=== PATIENT | female | born 1955 | race Caucasian/White ===

== ENCOUNTER → 2023-08-24 09:25 | Outpatient (REF) | payer MEDICARE, BC, SELFPAY ==
[2023-08-24 09:56] LABS: Ionized Calcium 1.25 mMOL/L (1.15-1.33)
[2023-08-24 10:36] LABS: ALT (SGPT) 51 U/L (0-35); AST (SGOT) 47 U/L (14-36); Albumin 4.2 g/dl (3.5-5.0); Alkaline Phosphatase 56 U/L (38-126); Blood Urea Nitrogen 23 mg/dl (7-17); Calcium 10.2 mg/dl (8.4-10.2); Carbon Dioxide 26 mmol/L (22-30); Chloride 101 mmol/L (98-107); Glucose 102 mg/dl (70-99); HDL Cholesterol 58 mg/dl; LDL Cholesterol, Calculated 53 mg/dl; Potassium 4.2 mmol/L (3.5-5.1); Sodium 138 mmol/L (135-145); Total Bilirubin 0.7 mg/dl (0.2-1.3); Total Cholesterol 148 mg/dl (50-199); Total Protein 7.2 g/dl (6.3-8.2); Triglyceride 185 mg/dl (10-149); Very Low Density Lipoprotein 37 mg/dl (0-30); eGFR > 60.00
[2023-08-24 10:45] LABS: Intact PTH 34.7 pg/ml (13.6-85.8)
[2023-08-24 11:13] LABS: Vitamin D, 25-OH*** 74.7 ng/mL (30-80)
[2023-08-24 11:38] LABS: Glycohemoglobin (HgbA1c) 5.6 % (4.0-5.6)
== END ==
LOC: REG 09:25
PROVIDERS: ATTENDING PHYSICIAN Internal Medicine; FAMILY PHYSICIAN Internal Medicine; REFERRING PHYSICIAN Internal Medicine Endocrinology, Diabetes & Metabolism
DX: E78.00 Pure hypercholesterolemia, unspecified (principal); E78.1 Pure hyperglyceridemia; E11.9 Type 2 diabetes mellitus without complications; E83.52 Hypercalcemia; E55.9 Vitamin D deficiency, unspecified
CPT/HCPCS: 36415; 80053; 80061; 82306; 82330; 83036; 83970; 84443

== ENCOUNTER → 2024-02-26 09:17 | Outpatient (REF) | payer MEDICARE, BC, SELFPAY ==
[2024-02-26 11:38] LABS: ALT (SGPT) 30 U/L (0-35); AST (SGOT) 32 U/L (14-36); Albumin 4.4 g/dl (3.5-5.0); Alkaline Phosphatase 51 U/L (38-126); Blood Urea Nitrogen 22 mg/dl (7-17); Calcium 10.5 mg/dl (8.4-10.2); Carbon Dioxide 28 mmol/L (22-30); Chloride 104 mmol/L (98-107); Glucose 98 mg/dl (70-99); HDL Cholesterol 57 mg/dl; LDL Cholesterol, Calculated 43 mg/dl; Potassium 4.1 mmol/L (3.5-5.1); Sodium 144 mmol/L (135-145); Total Bilirubin 0.4 mg/dl (0.2-1.3); Total Cholesterol 142 mg/dl (50-199); Triglyceride 211 mg/dl (10-149); Very Low Density Lipoprotein 42 mg/dl (0-30); eGFR > 60.00
[2024-02-26 12:08] LABS: TSH 3.61 uIU/ml (0.47-4.68)
[2024-02-26 12:56] LABS: Glycohemoglobin (HgbA1c) 5.6 % (4.0-5.6)
[2024-02-28 00:10] LABS: Thyroid Peroxidase Ab (TPO) 247.8 IU/mL (0.0-9.0)
== END ==
LOC: REG 09:17
PROVIDERS: ATTENDING PHYSICIAN Internal Medicine Endocrinology, Diabetes & Metabolism; FAMILY PHYSICIAN Internal Medicine; REFERRING PHYSICIAN Internal Medicine
DX: E11.9 Type 2 diabetes mellitus without complications (principal); E83.52 Hypercalcemia; E78.5 Hyperlipidemia, unspecified; E03.8 Other specified hypothyroidism
CPT/HCPCS: 36415; 80053; 80061; 83036; 84443; 86376

== ENCOUNTER → 2024-09-01 08:41 | Outpatient (REF) | payer MEDICARE, BC, SELFPAY ==
[2024-09-01 09:49] LABS: Ionized Calcium 1.32 mMOL/L (1.15-1.33)
[2024-09-01 10:27] LABS: ALT (SGPT) 33 U/L (0-35); AST (SGOT) 31 U/L (14-36); Albumin 4.7 g/dl (3.5-5.0); Alkaline Phosphatase 51 U/L (38-126); Blood Urea Nitrogen 20 mg/dl (7-17); Calcium 10.6 mg/dl (8.4-10.2); Carbon Dioxide 29 mmol/L (22-30); Chloride 99 mmol/L (98-107); Glucose 94 mg/dl (70-99); HDL Cholesterol 68 mg/dl; LDL Cholesterol, Calculated 74 mg/dl; Potassium 4.3 mmol/L (3.5-5.1); Sodium 139 mmol/L (135-145); Total Bilirubin 0.7 mg/dl (0.2-1.3); Total Cholesterol 169 mg/dl (50-199); Total Protein 7.3 g/dl (6.3-8.2); Triglyceride 139 mg/dl (10-149); Very Low Density Lipoprotein 27 mg/dl (0-30); eGFR > 60.00
[2024-09-01 10:36] LABS: Microalbumin, Random Urine 2.4 mg/dl (0.6-1.7); Microalbumin/creatinine Ratio 12.4 mg/g
[2024-09-01 10:42] LABS: Glycohemoglobin (HgbA1c) 5.2 % (4.0-5.6)
[2024-09-01 10:46] LABS: Free T4 1.14 ng/dl (0.78-2.19)
[2024-09-01 10:59] LABS: TSH 4.19 uIU/ml (0.47-4.68)
[2024-09-01 11:50] LABS: Intact PTH 25.3 pg/ml (13.6-85.8)
== END ==
LOC: REG 08:41
PROVIDERS: ATTENDING PHYSICIAN Internal Medicine Endocrinology, Diabetes & Metabolism; FAMILY PHYSICIAN Internal Medicine
DX: E11.9 Type 2 diabetes mellitus without complications (principal); E83.52 Hypercalcemia; E03.8 Other specified hypothyroidism; E55.9 Vitamin D deficiency, unspecified
CPT/HCPCS: 36415; 80053; 80061; 82043; 82306; 82330; 82570; 83036; 83970; 84439; 84443

== ENCOUNTER → 2025-03-01 10:07 | Outpatient (REF) | payer MEDICARE, BC, SELFPAY ==
[2025-03-01 10:52] LABS: Microalb - Urine Creatinine 211.600 mg/dl
[2025-03-01 10:57] LABS: Microalbumin, Random Urine 3.4 mg/dl (0.6-1.7)
[2025-03-01 11:13] LABS: ALT (SGPT) 26 U/L (0-35); AST (SGOT) 31 U/L (14-36); Albumin 4.6 g/dl (3.5-5.0); Alkaline Phosphatase 53 U/L (38-126); Blood Urea Nitrogen 23 mg/dl (7-17); Calcium 10.5 mg/dl (8.4-10.2); Carbon Dioxide 30 mmol/L (22-30); Chloride 104 mmol/L (98-107); Glucose 82 mg/dl (70-99); HDL Cholesterol 66 mg/dl; LDL Cholesterol, Calculated 96 mg/dl; Potassium 4.5 mmol/L (3.5-5.1); Sodium 140 mmol/L (135-145); Total Protein 7.6 g/dl (6.3-8.2); Very Low Density Lipoprotein 19 mg/dl (0-30); eGFR > 60.00
[2025-03-01 11:29] LABS: Vitamin D, 25-OH*** 60.5 ng/mL (30-80)
[2025-03-01 11:43] LABS: TSH 3.52 uIU/ml (0.47-4.68)
[2025-03-01 13:19] LABS: Glycohemoglobin (HgbA1c) 5.2 % (4.0-5.6)
== END ==
LOC: REG 10:07
PROVIDERS: ATTENDING PHYSICIAN Internal Medicine Endocrinology, Diabetes & Metabolism; FAMILY PHYSICIAN Internal Medicine
DX: E11.9 Type 2 diabetes mellitus without complications (principal); E78.5 Hyperlipidemia, unspecified; E03.8 Other specified hypothyroidism; E83.52 Hypercalcemia; E55.9 Vitamin D deficiency, unspecified
CPT/HCPCS: 36415; 80053; 80061; 82043; 82306; 82330; 82570; 83036; 83970; 84443